=== PATIENT | male | born 2000 | race Caucasian/White ===

== ENCOUNTER 2021-11-06 14:49 | Emergency (ER) | payer BC ==
[~2021-11-06] VITALS: Ht 182.9 cm; Wt 93.2 kg
[2021-11-06 14:59] VITALS: BP 143/76
[2021-11-06] MEDS ORDERED: HYDROcodone/APAP 5/325MG 1 TAB TABLET PO ONE (15:15)
--- NOTE | 2021-11-06 15:19 | RAD ---
EXAM: 3 views right hand DATE: 11/06/2021 3:10 PM INDICATION: Reason: middle figer laceration with saw / Spl. Instructions: / History: . COMPARISON: No Prior FINDINGS/ IMPRESSION: Soft tissue swelling and irregularity about the distal middle finger without evidence for retained ra diopaque foreign body or acute fracture or dislocation. Electronically signed by: Hermelindo Mcneal MD (11/06/2021 3:16 PM) OG
[2021-11-06] MEDS ORDERED: HYDR-2155 PO (15:35)
--- NOTE | 2021-11-06 15:38 | PHYS DOC ---
Past History Past Surgical History: No Surgical History General Adult EDM: Chief Complaint: FINGER INJURY HPI: HPI: Patient is a 20-year-old male who presents with injury to right, middle finger. Patient states he was using a table saw when he slipped and cut the tip of his finger. Bleeding is controlled. Range of motion is intact. Radial pulses intact. Denies medical history. Tetanus is up-to-date. Review of Systems: Review of Systems: ROS At least 10 ROS systems have been reviewed and are negative except as documented in the HPI. General: Negative except as outlined in HPI above. Skin: Negative except as outlined in HPI above. HEENT: Negative except as outlined in HPI above. Neck: Negative except as outlined in HPI above. Respiratory: Negative except as outlined in HPI above.. Cardiovascular: Negative except as outlined in HPI above. Abdomen: Negative except as outlined in HPI above. : Negative except as outlined in HPI above. Back/MSK: Negative except as outlined in HPI above. Neuro: Negative except as outlined in HPI above. Psych: Negative except as outlined in HPI above. Current Medications: Current Meds: Current Medications Medications (Trade) Dose Ordered Sig/Naren Start Time Stop Time Status Last Admin Dose Admin Acetaminophen/ Hydrocodone Bitart (Lortab 5/325) 1 tab 1X ONCE 11/06/21 15:15 11/06/21 15:16 UNV Physical Exam: PE: Constitutional: Well developed, well nourished, no acute distress, non-toxic appearance. [] HENT: Normocephalic, atraumatic, bilateral external ears normal, oropharynx moist, no oral exudates, nose normal. [] Eyes: PERRLA, EOMI, conjunctiva normal, no discharge. [] Neck: Normal range of motion, no tenderness, supple, no stridor. [] Cardiovascular:Heart rate regular rhythm, no murmur [] Lungs & Thorax: Bilateral breath sounds clear to auscultation [] Abdomen: Bowel sounds normal, soft, no tenderness, no masses, no pulsatile masses. [] Skin: Warm, dry, no erythema, no rash. [] Back: No tenderness, no CVA tenderness. [] Extremities: Right hand, third digit tenderness, no cyanosis, ROM intact, no edema. [] Neurologic: Alert and oriented X 3, normal motor function, normal sensory function, no focal deficits noted., Radial pulses intact Psychologic: Affect normal, judgement normal, mood normal. [] Current Patient Data: Vital Signs: Vital Signs Date Time Temp Pulse Resp B/P (MAP) Pulse Ox O2 Delivery O2 Flow Rate FiO2 11/06/21 14:59 98.9 73 16 143/76 (98) 100 Room Air EKG: EKG: [] Radiology/Procedures: Radiology/Procedures: []EXAM: 3 views right hand DATE: 11/06/2021 3:10 PM INDICATION: Reason: middle figer laceration with saw / Spl. Instructions: / History: . COMPARISON: No Prior FINDINGS/ IMPRESSION: Soft tissue swelling and irregularity about the distal middle finger without evidence for retained radiopaque foreign body or acute fracture or dislocation. Electronically signed by: Hermelindo Mcneal MD (11/06/2021 3:16 PM) RSOSIGABE Heart Score: C/O Chest Pain: No Risk Factors: Risk Factors: DM, Current or recent (<one month) smoker, HTN, HLP, family history of CAD, obesity. Risk Scores: Score 0 - 3: 2.5% MACE over next 6 weeks - Discharge Home Score 4 - 6: 20.3% MACE over next 6 weeks - Admit for Clinical Observation Score 7 - 10: 72.7% MACE over next 6 weeks - Early Invasive Strategies Course & Med Decision Making: Course & Med Decision Making Pertinent Labs and Imaging studies reviewed. (See chart for details) [] 20-year-old male presents with injury to right, middle finger. Patient was using a table saw when he cut the tip of his finger. Range of motion is intact. Radial pulses are intact. Bleeding is controlled. Patient reports that tetanus is up-to-date. X-ray of right hand ordered to rule out fracture or foreign body. Wound was cleaned. Patient given hydrocodone for pain. Hand x-ray is unremarkable. No evidence of foreign body or acute fracture. Discussed results with patient. Sending patient home with some pain medication. Educated patient on wound care at home. Patient is to keep the wound clean and dry. Follow-up with primary care physician. David Disclaimer: David Disclaimer: This electronic medical record was generated, in whole or in part, using a voice recognition dictation system. Departure Departure: Impression: Primary Impression: Laceration of finger of right hand Qualified Codes: S61.312A - Laceration without foreign body of right middle finger with damage to nail, initial encounter Disposition: HOME / SELF CARE / HOMELESS Condition: STABLE Referrals: PCP,NO (PCP) Patient Instructions: Laceration Care, Adult, [id number] Additional Instructions: You are seen in the emergency room after a laceration to your finger. X-ray was negative for fracture. Make sure you keep the wound clean and covered to avoid infection. Sending you home with some pain medication. Also take ibuprofen for breakthrough pain. Return to the emergency room if you have worsening symptoms or concerns. EMERGENCY DEPARTMENT GENERAL DISCHARGE INSTRUCTIONS Thank you for coming to [facility] (ED) today and trusting us with you care. We trust that you had a positivie experience in our Emergency Department. If you wish to speak to the department management, you may call the director at [phone]. YOUR FOLLOW UP INSTRUCTIONS ARE FOLLOWS: 1. Do you have a private Doctor? If you do not have a private doctor, please ask for a resource list of physicians or clinics that may be able to assist you with follow up care. 2. The Emergency Physician has interpreted your x-rays. The X-Ray specialist will also review them. If there is a change in the findings, you will be notified in 48 hours when at all possible. 3. A lab test or culture has been done, your results will be reviewed and you will be notified if you need a change in treatment. ADDITIONAL INSTRUCTIONS AND INFORMATION: 1. Your care today has been supervised by a physician who is specially trained in emergency care. Many problems require more than one evaluation for a complete diagnosis and treatment. We recommend that you schedule your follow up appointment as recommended to ensure complete treatment of you illness or injury. If you are unable to obtain follow up care and continue to have a problem, or if your condition worsens, we recommend that you return to the ED. 2. We are not able to safely determine your condition over the phone nor are we able to give sound medical advice over the phone. For these safety reasons, if you call for medical advice we will ask you to come to the ED for further evaluation. 3. If you have any questions regarding these discharge instructions please call the ED at [phone]. SAFETY INFORMATION: In the interest of safety, wellness, and injury prevention; we encourage you to wear your sealbelt, if you smoke; quite smoking, and we encourage family to use a protective helmet for bicycling and other sporting events that present an increased risk for head injury. IF YOUR SYMPTOMS WORSEN OR NEW SYMPTOMS DEVELOP, OR YOU HAVE CONCERNS ABOUT YOUR CONDITION; OR IF YOUR CONDITION WORSENS WHILE YOU ARE WAITING FOR YOUR FOLLOW UP APPOINTMENT; EITHER CONTACT YOUR PRIMARY CARE DOCTOR, THE PHYSICIAN WHOSE NAME AND NUMBER YOU WERE GIVEN, OR RETURN TO THE ED IMMEDIATELY. Scripts Hydrocodone Bit/Acetaminophen (HYDROCODONE-APAP 5-325 ) 1 Each Tablet 1-2 TAB PO PRN Q6HRS PRN for PAIN for 3 Days, #12 TAB 0 Refills Prov: MICHAEL QURESHI APRN 11/06/21 MICHAEL QURESHI APRN November 06, 2021 15:38
[2021-11-06] MEDS ORDERED: NEOMY/BACITR/POLYMYXIN OINT PACKET. TP ONE (16:00)
== END 2021-11-06 16:10 | disposition home or self-care (01) ==
LOC: ER 14:49
DX: S61.312A Laceration without foreign body of right middle finger with damage to nail, initial encounter (principal); W27.8XXA Contact with other nonpowered hand tool, initial encounter; Y93.89 Activity, other specified; Y92.89 Other specified places as the place of occurrence of the external cause; Y99.8 Other external cause status
CPT/HCPCS: 29130; 73130; 99283